=== PATIENT | female | born 1960 | race Caucasian/White ===

== ENCOUNTER → 2017-09-09 | Day surgery (SDC) | payer BC ==
[~2017-09-09] MED LIST: Lactated Ringers 1,000 ML IV SCH; Propofol 200 MG/20 ML SDV IV ONE
--- NOTE | 2017-09-09 12:55 | OR ---
DATE OF OPERATION: 09/09/2017 PREOPERATIVE DIAGNOSIS: SCREENING COLONOSCOPY. POSTOPERATIVE DIAGNOSIS: SCREENING COLONOSCOPY. SURGEON: Jim Bruce MD PROCEDURE: FULL-LENGTH COLONOSCOPY WITH POLYP REMOVAL X1. ANESTHESIA: PROTOTYPE SEWER. COMPLICATIONS: None. SPECIMEN: Hyperplastic polyp x1. FINDINGS: 1. Normal full length colonoscopy. 2. Small hyperplastic polyp, distal sigmoid colon. RECOMMENDATIONS: Routine colonoscopy every 10 years. INDICATIONS: The patient is in for routine physical. She is overdue for routine screening colonoscopy. DESCRIPTION OF PROCEDURE: The patient was prepped and draped, placed in the left lateral decubitus position. A lubricated Olympus colonoscope was inserted and easily advanced to the cecum. Direct visualization of the ileocecal valve and appendiceal orifice was accomplished. We were able to intubate easily into the terminal ileum, which was benign. Upon withdrawal of the scope throughout the length of the colon, I found only one small hyperplastic polyp in the distal sigmoid area, which was removed easily with a cold forceps biopsy. There were no other signs of masses, ulcerations, lesions. No vascular abnormalities or bleeding sites. No signs of colitis or diverticula. The rectal vault was unremarkable. Retroflexion of scope in the rectum showed no anal lesions. Air was suctioned, scope removed without complication. RENNY/JUAN /[id number]
== END ==
LOC: CC.SDS 10:17
PROVIDERS: ATTEND Family Medicine
DX: Z12.11 Encounter for screening for malignant neoplasm of colon (principal); D12.5 Benign neoplasm of sigmoid colon; E78.5 Hyperlipidemia, unspecified; Z90.710 Acquired absence of both cervix and uterus; Z79.82 Long term (current) use of aspirin; Z79.899 Other long term (current) drug therapy; Z98.51 Tubal ligation status; Z72.0 Tobacco use
CPT/HCPCS: 45380; J2704; J7120